=== PATIENT | female | born 1935 | race Caucasian/White ===

== ENCOUNTER 2017-03-14 12:20 | Inpatient (IN) | payer MEDICARE, OTHER ==
[~2017-03-14] VITALS: Ht 167.6 cm; Wt 80.7 kg
[2017-03-14 12:59] VITALS: BP 141/68
[2017-03-14] MEDS ORDERED: VITAMIN B-121000 MCG PO (13:18)
[2017-03-14] MEDS ORDERED: DITROPAN PO (13:19)
[2017-03-14] MEDS ORDERED: VITAMIN D22000 UNIT PO (13:19)
[2017-03-14] MEDS ORDERED: DOCUSATE SOD100 M2 PO (13:19)
[2017-03-14] MEDS ORDERED: LOPRESSOR 550 MG/TAB PO (13:20)
[2017-03-14] MEDS ORDERED: CRESTOR5 MG PO (13:20)
[2017-03-14] MEDS ORDERED: LEVOTHYROXIN100 MCG PO (13:20)
[2017-03-14] MEDS ORDERED: PEPCID20 MG PO (13:20)
[2017-03-14] MEDS ORDERED: LISINOPRIL2.5 MG PO (13:21)
[2017-03-14] MEDS ORDERED: BREO ELLIPTA 101 INH IN (13:21)
[2017-03-14] MEDS ORDERED: WARFARIN2.5 MG PO (13:21)
[2017-03-14] MEDS ORDERED: FLONASE AL50 MCG/ACT (13:22)
[2017-03-14] MEDS ORDERED: FLONASE AL50 MCG/AC1 (13:22)
[2017-03-14] MEDS ORDERED: ALLERGY RELF10 M3 PO (13:22)
[2017-03-14] MEDS ORDERED: LISINOPRIL5 MG PO (13:25)
[2017-03-14 13:35] LABS: HEMATOCRIT 37.5 % (37.0-47.0); HEMOGLOBIN 12.4 g/dl (12.0-16.0); IMMATURE GRANULOCYTES 0.4 % (0.0-1.0); MEAN CELL VOLUME 97.4 fL CALC (80.0-100.0); MEAN CORPUSCULAR HGB 32.2 pG CALC (26.0-32.0); MEAN CORPUSCULAR HGB CONC 33.1 g/L CALC (32.0-36.0); NEUT# 5.49 thou/uL (2.00-7.15); RED BLOOD COUNT 3.85 mill/uL (4.20-5.60); RED CELL DISTRI WIDTH 12.1 % (11.5-15.5)
[2017-03-14 13:41] LABS: ALBUMIN 4.3 g/dL (3.2-5.0); BILIRUBIN, TOTAL 0.6 mg/dL (0.0-1.4); CALCIUM 9.5 mg/dL (8.4-10.2); CREATININE 1.3 mg/dL (0.5-1.0); POTASSIUM 4.4 mmol/l (3.5-5.1); TOTAL PROTEIN 7.5 g/dL (6.3-8.2)
[2017-03-14 13:43] LABS: INTERNATIONAL NORMALIZED RATIO 1.6 RATIO (0.7-1.3); PROTHROMBIN TIME 18.2 SECONDS (9.0-12.5)
[2017-03-14 16:10] VITALS: BP 106/46
[2017-03-14 16:18] LABS: URINE BILIRUBIN - DIPSTICK NEGATIVE (NEGATIVE); URINE BLOOD DIPSTICK NEGATIVE (NEGATIVE); URINE CLARITY CLEAR; URINE COLOR YELLOW; URINE GLUCOSE - DIPSTICK NEGATIVE (NEGATIVE); URINE KETONE NEGATIVE (NEGATIVE); URINE LEUK ESTERASE NEGATIVE (NEGATIVE); URINE NITRITE - DIPSTICK NEGATIVE (Negative); URINE PH 5.5 (4.5-8.0); URINE PROTEIN - DIPSTICK NEGATIVE (NEG-TRACE); URINE SPECIFIC GRAVITY 1.015; URINE UROBILINOGEN - DIPSTICK 0.2 E.U./dL (0.2)
[2017-03-14 19:30] VITALS: BP 128/69
[2017-03-15] VITALS (7 sets, daily range): BP systolic 109–140; BP diastolic 57–68
[2017-03-15 06:10] LABS: HEMOGLOBIN 12.6 g/dl (12.0-16.0); IMMATURE GRANULOCYTES 0.6 % (0.0-1.0); MEAN CELL VOLUME 96.7 fL CALC (80.0-100.0); MEAN CORPUSCULAR HGB 32.1 pG CALC (26.0-32.0); MEAN CORPUSCULAR HGB CONC 33.2 g/L CALC (32.0-36.0); NEUT# 5.43 thou/uL (2.00-7.15); RED BLOOD COUNT 3.93 mill/uL (4.20-5.60); RED CELL DISTRI WIDTH 11.8 % (11.5-15.5)
[2017-03-15 06:25] LABS: INTERNATIONAL NORMALIZED RATIO 1.6 RATIO (0.7-1.3); PROTHROMBIN TIME 18.2 SECONDS (9.0-12.5)
[2017-03-15 06:29] LABS: ANION GAP 17 (6-22 (CALC)); BUN 18 mg/dL (8-23); BUN/CREATININE RATIO 18 (12-20 (CALC)); CARBON DIOXIDE 22 mmol/l (22-30); CHLORIDE 108 mmol/l (95-108); GFR 53 ML/MIN (>=60 (CALC)); GFR FOR AFR.AMER. > 60 ML/MIN (>=60 (CALC)); GLUCOSE 152 mg/dL (82-115); MAGNESIUM 1.6 mg/dL (1.6-2.3); POTASSIUM 4.8 mmol/l (3.5-5.1); SODIUM 141 mmol/l (137-146)
[2017-03-15 20:16] LABS: INTERNATIONAL NORMALIZED RATIO 1.8 RATIO (0.7-1.3); PROTHROMBIN TIME 20.4 SECONDS (9.0-12.5)
[2017-03-16 04:15] VITALS: BP 123/73
[2017-03-16 06:29] LABS: HEMATOCRIT 35.7 % (37.0-47.0); IMMATURE GRANULOCYTES 0.9 % (0.0-1.0); MEAN CELL VOLUME 97.3 fL CALC (80.0-100.0); MEAN CORPUSCULAR HGB 32.7 pG CALC (26.0-32.0); MEAN CORPUSCULAR HGB CONC 33.6 g/L CALC (32.0-36.0); NEUT# 14.93 thou/uL (2.00-7.15); RED BLOOD COUNT 3.67 mill/uL (4.20-5.60)
[2017-03-16 06:45] LABS: PROTHROMBIN TIME 23.4 SECONDS (9.0-12.5)
[2017-03-16 06:50] LABS: ANION GAP 15 (6-22 (CALC)); BUN 20 mg/dL (8-23); BUN/CREATININE RATIO 20 (12-20 (CALC)); CALCIUM 8.9 mg/dL (8.4-10.2); CARBON DIOXIDE 22 mmol/l (22-30); CHLORIDE 109 mmol/l (95-108); GFR 53 ML/MIN (>=60 (CALC)); GFR FOR AFR.AMER. > 60 ML/MIN (>=60 (CALC)); GLUCOSE 146 mg/dL (82-115); MAGNESIUM 1.8 mg/dL (1.6-2.3); POTASSIUM 4.6 mmol/l (3.5-5.1); SODIUM 142 mmol/l (137-146)
[2017-03-16 08:51] VITALS: BP 103/44
[2017-03-16 09:45] VITALS: BP 107/53
[2017-03-16] MEDS ORDERED: HYDROCO/APAP1 TA9 PO (10:01)
[2017-03-16] MEDS ORDERED: LEVAQUIN750 MG PO (10:01)
[2017-03-16] MEDS ORDERED: PREDNISONE10 MG PO (10:03)
== END 2017-03-16 10:53 | disposition home or self-care (01) | DRG 190 ==
LOC: MS2 12:20
PROVIDERS: Nurse Practitioner Family; ADMIT Internal Medicine; ATTEND Internal Medicine
DX: J44.0 Chronic obstructive pulmonary disease with (acute) lower respiratory infection (principal); J18.9 Pneumonia, unspecified organism; N17.9 Acute kidney failure, unspecified; I48.91 Unspecified atrial fibrillation; E86.0 Dehydration; J44.1 Chronic obstructive pulmonary disease with (acute) exacerbation; M54.5 Low back pain; E78.5 Hyperlipidemia, unspecified; E03.9 Hypothyroidism, unspecified; Z79.01 Long term (current) use of anticoagulants

== ENCOUNTER 2017-09-30 08:16 | Emergency (ER) | payer MEDICARE, OTHER ==
[~2017-09-30] VITALS: Ht 167.6 cm; Wt 70.0 kg
[~2017-09-30 08:16] MED LIST: ALLERGY RELF10 M3 PO; BREO ELLIPTA 101 INH IN; CRESTOR5 MG PO; DITROPAN PO; DOCUSATE SOD100 M2 PO; FLONASE AL50 MCG/AC1; FLONASE AL50 MCG/ACT IN; HYDROCO/APAP1 TA9 PO; LEVAQUIN750 MG PO; LEVOTHYROXIN100 MCG PO; LISINOPRIL2.5 MG PO; LISINOPRIL5 MG PO; METO25TAB PO; PEPCID20 MG PO; PREDNISONE10 MG PO; VITAMIN B-121000 MCG PO; VITAMIN D22000 UNIT PO; WARFARIN2.5 MG PO
[2017-09-30 09:03] LABS: HEMATOCRIT 38.8 % (37.0-47.0); HEMOGLOBIN 12.8 g/dl (12.0-16.0); IMMATURE GRANULOCYTES 0.4 % (0.0-1.0); MEAN CELL VOLUME 95.3 fL CALC (80.0-100.0); MEAN CORPUSCULAR HGB 31.4 pG CALC (26.0-32.0); NEUT# 4.72 thou/uL (2.00-7.15); RED BLOOD COUNT 4.07 mill/uL (4.20-5.60); RED CELL DISTRI WIDTH 12.2 % (11.5-15.5)
[2017-09-30 09:33] LABS: ALBUMIN 3.8 g/dL (3.2-5.0); ALKALINE PHOSPHATASE 80 u/l (38-126); AMYLASE 47 u/l (30-110); ANION GAP 16 (6-22 (CALC)); BILIRUBIN, TOTAL 0.6 mg/dL (0.0-1.4); BUN 15 mg/dL (8-23); BUN/CREATININE RATIO 13 (12-20 (CALC)); CARBON DIOXIDE 28 mmol/l (22-30); CHLORIDE 103 mmol/l (95-108); CREATININE 1.2 mg/dL (0.5-1.0); GFR 43 ML/MIN (>=60 (CALC)); GFR FOR AFR.AMER. 52 ML/MIN (>=60 (CALC)); LIPASE 44 u/l (23-300); SGOT/AST 16 u/l (9-36); SGPT/ALT 22 u/l (11-66); SODIUM 143 mmol/l (137-146); TOTAL PROTEIN 6.8 g/dL (6.3-8.2)
[2017-09-30 09:36] LABS: INTERNATIONAL NORMALIZED RATIO 1.6 RATIO (0.7-1.3); PROTHROMBIN TIME 18.3 SECONDS (9.0-12.5)
[2017-09-30 09:42] LABS: MYOGLOBIN 35 ng/mL (0 - 62)
[2017-09-30] MEDS ORDERED: TORADOL PO (10:00)
[2017-09-30 10:05] VITALS: BP 129/53
== END 2017-09-30 10:05 | disposition home or self-care (01) ==
LOC: ED 08:16
PROVIDERS: Family Medicine
DX: R07.89 Other chest pain (principal); R10.13 Epigastric pain; I10 Essential (primary) hypertension; R05 Cough; E78.5 Hyperlipidemia, unspecified

== ENCOUNTER 2017-10-05 10:33 | Observation (INO) | payer MEDICARE, OTHER ==
[~2017-10-05] VITALS: Ht 167.6 cm; Wt 81.8 kg
[~2017-10-05 10:33] MED LIST changes: +TORADOL PO
[2017-10-05 11:06] LABS: HEMATOCRIT 39.4 % (37.0-47.0); HEMOGLOBIN 13.1 g/dl (12.0-16.0); IMMATURE GRANULOCYTES 0.3 % (0.0-1.0); MEAN CELL VOLUME 95.2 fL CALC (80.0-100.0); MEAN CORPUSCULAR HGB 31.6 pG CALC (26.0-32.0); MEAN CORPUSCULAR HGB CONC 33.2 g/L CALC (32.0-36.0); NEUT# 6.14 thou/uL (2.00-7.15); RED BLOOD COUNT 4.14 mill/uL (4.20-5.60); RED CELL DISTRI WIDTH 11.9 % (11.5-15.5)
[2017-10-05 11:25] LABS: ANION GAP 16 (6-22 (CALC)); BUN 16 mg/dL (8-23); BUN/CREATININE RATIO 13 (12-20 (CALC)); CARBON DIOXIDE 26 mmol/l (22-30); CHLORIDE 101 mmol/l (95-108); CREATININE 1.2 mg/dL (0.5-1.0); GFR 43 ML/MIN (>=60 (CALC)); GFR FOR AFR.AMER. 52 ML/MIN (>=60 (CALC)); POTASSIUM 4.2 mmol/l (3.5-5.1); SODIUM 138 mmol/l (137-146)
[2017-10-05] MEDS ORDERED: ACETAMINOPHEN500 MG PO (13:30)
[2017-10-05] MEDS ORDERED: VITAMIN D32000 UNI2 PO (13:32)
[2017-10-05] MEDS ORDERED: DITROPAN PO (13:34)
[2017-10-05] MEDS ORDERED: SINGULAIR10 MG PO (13:35)
[2017-10-05] MEDS ORDERED: WARFARIN2.5 MG PO (13:39)
[2017-10-05 14:14] LABS: INTERNATIONAL NORMALIZED RATIO 1.6 RATIO (0.7-1.3); PROTHROMBIN TIME 18.4 SECONDS (9.0-12.5)
[2017-10-05 14:15] VITALS: BP 145/63
[2017-10-05] MEDS ORDERED: TYLENOL PM PO (15:34)
[2017-10-05] MEDS ORDERED: TORADOL PO (15:41)
[2017-10-05 16:16] VITALS: BP 164/69
[2017-10-05 19:00] VITALS: BP 145/56
[2017-10-06] VITALS: BP 144/47
[2017-10-06 04:00] VITALS: BP 134/61
[2017-10-06 06:49] LABS: INTERNATIONAL NORMALIZED RATIO 1.7 RATIO (0.7-1.3); PROTHROMBIN TIME 18.9 SECONDS (9.0-12.5)
[2017-10-06 07:11] LABS: CHOLESTEROL HDL RATIO 2.6 (<4.4 (CALC))
[2017-10-06 08:15] VITALS: BP 143/49
[2017-10-06 11:11] VITALS: BP 117/57
[2017-10-06] MEDS ORDERED: TRAMADOL HCL50 MG PO (11:53)
[2017-10-06] MEDS ORDERED: VOLTAREN1%GEL TOP (11:53)
== END 2017-10-06 14:53 ==
LOC: ED 10:33 → ED-I 11:42 → ED 12:43 → MS2 12:44
PROVIDERS: Family Medicine; Nurse Practitioner Family; ADMIT Internal Medicine; ATTEND Internal Medicine
DX: T81.89XA Other complications of procedures, not elsewhere classified, initial encounter (principal); G89.28 Other chronic postprocedural pain; I12.9 Hypertensive chronic kidney disease with stage 1 through stage 4 chronic kidney disease, or unspecified chronic kidney disease; N18.9 Chronic kidney disease, unspecified; J44.9 Chronic obstructive pulmonary disease, unspecified; E03.9 Hypothyroidism, unspecified; E78.5 Hyperlipidemia, unspecified; N39.3 Stress incontinence (female) (male); Y83.8 Other surgical procedures as the cause of abnormal reaction of the patient, or of later complication, without mention of misadventure at the time of the procedure; Z95.2 Presence of prosthetic heart valve; Z79.01 Long term (current) use of anticoagulants; R07.9 Chest pain, unspecified

== ENCOUNTER 2017-11-22 07:24 | Emergency (ER) | payer MEDICARE, OTHER ==
[~2017-11-22] VITALS: Ht 167.6 cm; Wt 80.0 kg
[~2017-11-22 07:24] MED LIST changes: +ACETAMINOPHEN500 MG PO; +SINGULAIR10 MG PO; +TRAMADOL HCL50 MG PO; +TYLENOL PM PO; +VITAMIN D32000 UNI2 PO; +VOLTAREN1%GEL TOP
[2017-11-22] MEDS ORDERED: TYLENOL # 31 TA1 PO (07:34)
[2017-11-22] MEDS ORDERED: BREO ELLIPTA 101 INH (07:36)
[2017-11-22] MEDS ORDERED: HYDROCO/APAP1 TA9 PO (07:42)
[2017-11-22] MEDS ORDERED: BACLOFEN10 MG PO (07:42)
[2017-11-22 08:04] LABS: HEMATOCRIT 43.2 % (37.0-47.0); HEMOGLOBIN 14.1 g/dl (12.0-16.0); IMMATURE GRANULOCYTES 0.2 % (0.0-1.0); MEAN CELL VOLUME 95.6 fL CALC (80.0-100.0); MEAN CORPUSCULAR HGB 31.2 pG CALC (26.0-32.0); MEAN CORPUSCULAR HGB CONC 32.6 g/L CALC (32.0-36.0); NEUT# 9.5 thou/uL (2.00-7.15); RED BLOOD COUNT 4.52 mill/uL (4.20-5.60); RED CELL DISTRI WIDTH 11.7 % (11.5-15.5)
[2017-11-22 08:15] LABS: ALBUMIN 4.5 g/dL (3.2-5.0); BILIRUBIN, TOTAL 0.7 mg/dL (0.0-1.4); CREATININE 1.2 mg/dL (0.5-1.0); POTASSIUM 4.2 mmol/l (3.5-5.1); TOTAL PROTEIN 8.3 g/dL (6.3-8.2)
[2017-11-22 09:16] VITALS: BP 162/75
== END 2017-11-22 09:30 | disposition home or self-care (01) ==
LOC: ED 07:24
PROVIDERS: Emergency Medicine
DX: Z04.8 Encounter for examination and observation for other specified reasons (principal); W18.39XA Other fall on same level, initial encounter; Y93.89 Activity, other specified; Y92.129 Unspecified place in nursing home as the place of occurrence of the external cause; R53.1 Weakness; I10 Essential (primary) hypertension; R51 Headache; R94.31 Abnormal electrocardiogram [ECG] [EKG]

== ENCOUNTER 2018-02-28 10:10 | Inpatient (IN) | payer MEDICARE, OTHER ==
[~2018-02-28] VITALS: Ht 167.6 cm; Wt 77.3 kg
[~2018-02-28 10:10] MED LIST changes: +BACLOFEN10 MG PO; +BREO ELLIPTA 101 INH; +TYLENOL # 31 TA1 PO
[2018-02-28 11:19] LABS: HEMATOCRIT 43.5 % (37.0-47.0); HEMOGLOBIN 14.6 g/dl (12.0-16.0); IMMATURE GRANULOCYTES 0.9 % (0.0-5.0); MEAN CORPUSCULAR HGB 31.9 pG CALC (26.0-32.0); MEAN CORPUSCULAR HGB CONC 33.6 g/L CALC (32.0-36.0); NEUT# 9.45 thou/uL (2.00-7.15); RED BLOOD COUNT 4.58 mill/uL (4.20-5.60); RED CELL DISTRI WIDTH 12.8 % (11.5-15.5)
[2018-02-28 11:26] LABS: ALBUMIN 4.3 g/dL (3.2-5.0); BILIRUBIN, TOTAL 0.8 mg/dL (0.0-1.4); CREATININE 1.2 mg/dL (0.5-1.0); POTASSIUM 4.9 mmol/l (3.5-5.1); TOTAL PROTEIN 7.6 g/dL (6.3-8.2)
[2018-02-28] MEDS ORDERED: SPIRIVA RE2.5 MCG/AC (11:31)
[2018-02-28] MEDS ORDERED: WARFARIN2.5 MG PO (11:32)
[2018-02-28] MEDS ORDERED: MONTELUKAST SOD10 MG PO (11:33)
[2018-02-28] MEDS ORDERED: PREDNISOLON2 XX (11:36)
[2018-02-28] MEDS ORDERED: ZITHROMAX Z-PA250 MG (11:37)
[2018-02-28 12:09] LABS: URINE BILIRUBIN - DIPSTICK NEGATIVE (NEGATIVE); URINE BLOOD DIPSTICK NEGATIVE (NEGATIVE); URINE COLOR YELLOW; URINE GLUCOSE - DIPSTICK NEGATIVE (NEGATIVE); URINE KETONE NEGATIVE (NEGATIVE); URINE LEUK ESTERASE TRACE (NEGATIVE); URINE NITRITE - DIPSTICK NEGATIVE (Negative); URINE PH 6.5 (4.5-8.0); URINE PROTEIN - DIPSTICK NEGATIVE (NEG-TRACE); URINE SPECIFIC GRAVITY <=1.005; URINE UROBILINOGEN - DIPSTICK 0.2 E.U./dL (0.2)
[2018-02-28 12:10] LABS: URINE CLARITY CLEAR
[2018-02-28 16:14] VITALS: BP 163/63
[2018-02-28 20:00] VITALS: BP 126/62
[2018-03-01 04:00] VITALS: BP 107/72
[2018-03-01 05:16] LABS: HEMATOCRIT 39.1 % (37.0-47.0); HEMOGLOBIN 12.9 g/dl (12.0-16.0); IMMATURE GRANULOCYTES 0.8 % (0.0-5.0); MEAN CELL VOLUME 95.4 fL CALC (80.0-100.0); MEAN CORPUSCULAR HGB 31.5 pG CALC (26.0-32.0); NEUT# 5.82 thou/uL (2.00-7.15); RED BLOOD COUNT 4.1 mill/uL (4.20-5.60); RED CELL DISTRI WIDTH 12.9 % (11.5-15.5)
[2018-03-01 05:36] LABS: ALKALINE PHOSPHATASE 76 u/l (38-126); ANION GAP 14 (6-22 (CALC)); BILIRUBIN, TOTAL 0.4 mg/dL (0.0-1.4); BUN 26 mg/dL (8-23); BUN/CREATININE RATIO 25 (12-20 (CALC)); CARBON DIOXIDE 23 mmol/l (22-30); CHLORIDE 107 mmol/l (95-108); GFR 53 ML/MIN (>=60 (CALC)); GFR FOR AFR.AMER. > 60 ML/MIN (>=60 (CALC)); MAGNESIUM 1.9 mg/dL (1.6-2.3); POTASSIUM 4.2 mmol/l (3.5-5.1); SGOT/AST 29 u/l (9-36); SGPT/ALT 44 u/l (11-66); SODIUM 140 mmol/l (137-146)
[2018-03-01 05:45] LABS: ALBUMIN 3.1 g/dL (3.2-5.0); TOTAL PROTEIN 5.8 g/dL (6.3-8.2)
[2018-03-01 07:45] VITALS: BP 148/68
[2018-03-01 09:35] VITALS: BP 148/68
[2018-03-01] MEDS ORDERED: TRAMADOL HCL50 MG PO (14:04)
== END 2018-03-01 15:12 | DRG 206 ==
LOC: ED 10:10 → ED-I 14:22 → ED 14:43 → MS2 14:44
PROVIDERS: Emergency Medicine; ADMIT Internal Medicine Nephrology; ATTEND Internal Medicine Nephrology
DX: M94.0 Chondrocostal junction syndrome [Tietze] (principal); E87.2 Acidosis; I12.9 Hypertensive chronic kidney disease with stage 1 through stage 4 chronic kidney disease, or unspecified chronic kidney disease; N18.9 Chronic kidney disease, unspecified; I48.91 Unspecified atrial fibrillation; I25.10 Atherosclerotic heart disease of native coronary artery without angina pectoris; M51.9 Unspecified thoracic, thoracolumbar and lumbosacral intervertebral disc disorder; E03.9 Hypothyroidism, unspecified; J44.9 Chronic obstructive pulmonary disease, unspecified; E78.5 Hyperlipidemia, unspecified; Z79.52 Long term (current) use of systemic steroids; Z79.01 Long term (current) use of anticoagulants; Z87.440 Personal history of urinary (tract) infections; Z95.2 Presence of prosthetic heart valve
CPT/HCPCS: J1650; Q9967

== ENCOUNTER 2018-05-05 14:03 | Emergency (ER) | payer MEDICARE, OTHER ==
[~2018-05-05] VITALS: Ht 167.6 cm; Wt 72.3 kg
[~2018-05-05 14:03] MED LIST changes: -METO25TAB PO; +METOPROL TAR25 M1 PO; +MONTELUKAST SOD10 MG PO; +PREDNISOLON2 XX; +SPIRIVA RE2.5 MCG/AC; +ZITHROMAX Z-PA250 MG
[2018-05-05 15:20] LABS: HEMATOCRIT 42.1 % (37.0-47.0); HEMOGLOBIN 13.8 g/dl (12.0-16.0); IMMATURE GRANULOCYTES 0.6 % (0.0-5.0); MEAN CELL VOLUME 97.9 fL CALC (80.0-100.0); MEAN CORPUSCULAR HGB 32.1 pG CALC (26.0-32.0); MEAN CORPUSCULAR HGB CONC 32.8 g/L CALC (32.0-36.0); NEUT# 9.59 thou/uL (2.00-7.15); RED BLOOD COUNT 4.3 mill/uL (4.20-5.60); RED CELL DISTRI WIDTH 12.2 % (11.5-15.5)
[2018-05-05 15:27] LABS: ALKALINE PHOSPHATASE 87 u/l (38-126); BILIRUBIN, TOTAL 0.5 mg/dL (0.0-1.4); BUN 19 mg/dL (8-23); BUN/CREATININE RATIO 20 (12-20 (CALC)); CARBON DIOXIDE 25 mmol/l (22-30); CHLORIDE 101 mmol/l (95-108); GFR 53 ML/MIN (>=60 (CALC)); GFR FOR AFR.AMER. > 60 ML/MIN (>=60 (CALC)); LIPASE 13 u/l (23-300); SGOT/AST 36 u/l (9-36); SODIUM 136 mmol/l (137-146)
[2018-05-05 15:29] LABS: ALBUMIN 4.1 g/dL (3.2-5.0); ANION GAP 15 (6-22 (CALC)); POTASSIUM 5.1 mmol/l (3.5-5.1); TOTAL PROTEIN 7.1 g/dL (6.3-8.2)
[2018-05-05 16:31] LABS: URINE BILIRUBIN - DIPSTICK NEGATIVE (NEGATIVE); URINE BLOOD DIPSTICK NEGATIVE (NEGATIVE); URINE COLOR YELLOW; URINE GLUCOSE - DIPSTICK NEGATIVE (NEGATIVE); URINE KETONE NEGATIVE (NEGATIVE); URINE LEUK ESTERASE NEGATIVE (NEGATIVE); URINE NITRITE - DIPSTICK NEGATIVE (Negative); URINE PROTEIN - DIPSTICK NEGATIVE (NEG-TRACE); URINE UROBILINOGEN - DIPSTICK 0.2 E.U./dL (0.2)
[2018-05-05 16:36] LABS: URINE CLARITY CLEAR
[2018-05-05] MEDS ORDERED: TORADOL PO (18:55)
[2018-05-05 19:11] VITALS: BP 141/76
== END 2018-05-05 19:26 | disposition home or self-care (01) ==
LOC: ED 14:03
PROVIDERS: Emergency Medicine
DX: R10.13 Epigastric pain (principal); K59.00 Constipation, unspecified; I25.2 Old myocardial infarction; I10 Essential (primary) hypertension; M54.9 Dorsalgia, unspecified

== ENCOUNTER 2018-05-09 09:26 | Inpatient (IN) | payer MEDICARE, OTHER ==
[~2018-05-09] VITALS: Ht 167.6 cm; Wt 73.3 kg
[2018-05-09 09:45] VITALS: BP 118/64
--- NOTE | 2018-05-09 09:45 | NUR ---
PT TRANSPORTED TO [facility] VIA WHEELCHAIR ACCOMPANIED BY VOLUNTEER AND FAMILY @[id number]. PT AMBULATED FROM WHEELCHAIR TO BED W/ ASSISTANCE OF REGIONAL ENVIRONMENTAL MANAGER. VS DONE. ASSESSMENT COMPLETED AT THIS TIME. PT A/O X3. SPEECH IS CLEAR. POST CATARACT SURGERY. RESP EVEN AND UNLABORED. LUNG SOUNDS CLEAR. ABDOMEN ROUND,SOFT. BOWEL SOUNDS ACTIVE X3. STRONG RADIAL AND PEDAL PULSES. TRACE OF EDEMA TO BLE. ENCOURAGED ELVEATION ON PILLOW. #20 RW, NEW IV START BY REGIONAL ENVIRONMENTAL MANAGER. FLUSHED AND PATENT. SITE APPEARS HEALTHY. PT C/O THROBBING BACK PAIN 4 OUT OF 10 ON PAIN SCALE WHEN MOVING THAT RADIATES AROUND STOMACH. PT DENIES ANY PAIN MEDICATION AT THIS TIME. INSTRUCTED ON PAIN SCALE/MONITORING. PT STATES UNDERSTANDING. POC DISCUSSED. SAFETY PRECAUTIONS IN PLACE. CALL LIGHT IN REACH. WILL CONTINUE TO MONITOR
[2018-05-09 09:53] VITALS: BP 118/64
--- NOTE | 2018-05-09 10:26 | NUR ---
MS. RODAS FROM PHYSICAL THERAPY WAS HERE IN THE UNIT, AND I INFORMED ABOUT THE PHYSICAL AND OCCUPATIONAL THERAPY ORDER.
[2018-05-09 10:32] LABS: HEMATOCRIT 38.4 % (37.0-47.0); HEMOGLOBIN 12.6 g/dl (12.0-16.0); IMMATURE GRANULOCYTES 0.5 % (0.0-5.0); MEAN CELL VOLUME 97.2 fL CALC (80.0-100.0); MEAN CORPUSCULAR HGB 31.9 pG CALC (26.0-32.0); MEAN CORPUSCULAR HGB CONC 32.8 g/L CALC (32.0-36.0); NEUT# 8.16 thou/uL (2.00-7.15); RED BLOOD COUNT 3.95 mill/uL (4.20-5.60); RED CELL DISTRI WIDTH 11.9 % (11.5-15.5)
[2018-05-09 10:58] LABS: CREATININE 1.2 mg/dL (0.5-1.0)
[2018-05-09 11:28] VITALS: BP 132/56
[2018-05-09 11:32] LABS: URINE BILIRUBIN - DIPSTICK NEGATIVE (NEGATIVE); URINE BLOOD DIPSTICK NEGATIVE (NEGATIVE); URINE COLOR YELLOW; URINE GLUCOSE - DIPSTICK NEGATIVE (NEGATIVE); URINE KETONE NEGATIVE (NEGATIVE); URINE NITRITE - DIPSTICK NEGATIVE (Negative); URINE PH 6.5 (4.5-8.0); URINE PROTEIN - DIPSTICK NEGATIVE (NEG-TRACE); URINE SPECIFIC GRAVITY <=1.005; URINE UROBILINOGEN - DIPSTICK 0.2 E.U./dL (0.2)
[2018-05-09 11:34] LABS: URINE CLARITY CLEAR
[2018-05-09 11:35] LABS: URINE LEUK ESTERASE TRACE (NEGATIVE)
--- NOTE | 2018-05-09 12:20 | NUR ---
PT SITTING UP IN BED EATING LUNCH. RESP EVEN AND UNLABORED. PT DENIES ANY PAIN AT THIS TIME. CALL LIGHT IN REACH. WILL CONTINUE TO MONITOR
--- NOTE | 2018-05-09 13:48 | NUR ---
PT HAD ONLY CAME BACK FROM DOWNSTAIRS FOR DIAGNOSTIC EXAMS. STATED SHE WAS SO EXHAUSTED FROM TRANSFERS AND THAT HER STOMACH (POINTING AT HER EPIGASTRIC) WAS SO MUCH IN PAIN PS 10/10 WORSENED BY SLIGHT MOVEMENT. REQUESTED PT ASSESSMENT TO BE DONE TOMORROW.
[2018-05-09] MEDS ORDERED: MIRALAX3350 NF PO (13:49)
[2018-05-09] MEDS ORDERED: ACETAMINOPHEN500 MG PO (14:25)
--- NOTE | 2018-05-09 14:48 | NUR ---
O.TRo ATTEMPTED TO EVAL PATIENT AT 2:45 P.M., HOWEVER, PATIENT DECLINED O.T. EVAL DUE TO ABDOMINAL PAIN 01/27. Tessa DISCUSSED WITH Haroon
--- NOTE | 2018-05-09 14:49 | NUR ---
PT C/O THROBBING BACK PAIN RADIATING AROUND STOMACH. MEDICATED W/ ONE 10/ PERCOCET PO. REPOSITIONED IN BED FOR COMFORT. ASSISTED PT TO RESTROOM. FAMILY AT BEDSIDE. CALL LIGHT IN REACH. WILL CONTINUE TO MONITOR
--- NOTE | 2018-05-09 15:25 | NUR ---
PT STATES BACK PAIN HAS DECREASED TO A 5 OUT OF 10 ON PAIN SCALE. PT DENIES ANY FURTHER NEEDS. TELE IN PLACE. CALL LIGHT IN REACH. FAMILY AT BEDSIDE. WILL CONTINUE TO MONITOR
[2018-05-09 15:38] VITALS: BP 130/53
--- NOTE | 2018-05-09 15:40 | NUR ---
Performed medication reconcillation with patient. She is in an HALF-WAY and was unsure which medications she takes at which time of the day. Called [facility] and had medication record faxed over and recorded the most recent dosage times in her profile and removed medications she was no longer taking. Patient understood uses of all medications and had no further questions.
--- NOTE | 2018-05-09 17:15 | NUR ---
DR. QUINTANILLA IN TO SEE PT. PLAN OF CARE UPDATED.
[2018-05-09 18:57] VITALS: BP 146/61
--- NOTE | 2018-05-09 19:30 | NUR ---
PATIENT RESTING IN BED AT THIS TIME-AWAKE ALERT AND ORIENTEDX3. TELE MONITOR IN PLACE. SALINE LOCK TO RIGHT WRIST INTACT AND APPEARS HEALTHY AT THIS TIME. SAFETY PRECAUTIONS REINFORCED.CALL LIGHT IN REACH. WILL CONT TO MONITOR.
--- NOTE | 2018-05-09 20:35 | NUR ---
PATIENT RESTING IN BED-WATCHING TV. AWAKE ALERT WITH C/O MODERATE BACK PAIN. MEDICATED WITH PERCOCET ORDERED. IVF NS HUNG VIA RIGHT WRIST IV SITE-SITE IS HEALTHY AT THIS TIME. COUMADIN 2.5MG PO GIVEN ORDERED. SAFETY PRECAUTIONS REINFORCED. CALL LIGHT IN REACH. WILL CONT TO MONITOR.
[2018-05-10 00:07] VITALS: BP 149/61
--- NOTE | 2018-05-10 00:43 | NUR ---
PATIENT APPEARS SLEEPING AT THIS TIME WITH HOB ELEVATED AND EYES CLOSED. RESP ARE EVEN AND UNLABORED. TELE MONITOR IN PLACE. CALL LIGHT IN REACH. WILL CONT TO MONITOR.
--- NOTE | 2018-05-10 02:10 | NUR ---
PATIENT RESTING QUIETLY AT THIS TIME WITH NO COMPLAINTS. IVF NS PATENT AND INFUSING AT 80CC/HR ORDERED VIA RIGHT WRIST SITE. TELE MONITOR IN PLACE. CALL LIGHT IN REACH. WILL CONT TO MONITOR.
--- NOTE | 2018-05-10 04:07 | NUR ---
RESPONDED TO BED ALARM AND PATIENT IS ATTEMPTING TO GET OOB-SPAWLED ACROSS THE BED. PATIENT CONT TO HAVE SPASTIC MOVEMENT OF HER ARMS AND LEGS. STATES THAT SHE HAS TO URINATE. MAX ASSIST TO TRANSFER PATIENT TO BSC-PATIENT INCONT OF MODERATE AMT OF URINE DURING TRANSFER AND THEN LEGS BUCKLED-PLACED ON BSC TO VOID. PATIENT CONTINUES TO HAVE SPASTIC MOVEMENTS WHILE ON THE BSC FLAILING HER ARMS AROUND AND MUMBLING TO HERSELF. WHEN ASKED SPECIFIC QUESTIONS PATIENT DOES ANSWER CORRECTLY-KNOWS WHERE SHE IS AND BIRTHDATE. KNOWS HER NAME BUT THEN GOES RIGHT BACK TO INAPPROPRIATE BEHAVIOR. MAX ASSIST TO GET PATIENT BACK INTO BED. REPOSITIONED. SITTER AT BEDSIDE AT THIS TIME FOR PATIENT SAFETY. WILL CONT TO MONITOR.
[2018-05-10 04:12] VITALS: BP 139/70
--- NOTE | 2018-05-10 04:35 | NUR ---
RESTING IN BED AT THIS TIME-APPEARS SLEEPING WITH EYES CLOSED. TELE MONITOR IN PLACE. IVF NS PATENT AND INFUSING AT 80CC/HR. SITE REMAINS HEALTHY AT THIS TIME. CALL LIGHT IN REACH. WILL CONT TO MONITOR.
[2018-05-10 05:08] LABS: HEMATOCRIT 38.6 % (37.0-47.0); HEMOGLOBIN 12.6 g/dl (12.0-16.0); IMMATURE GRANULOCYTES 0.5 % (0.0-5.0); MEAN CORPUSCULAR HGB CONC 32.6 g/L CALC (32.0-36.0); NEUT# 5.64 thou/uL (2.00-7.15); RED BLOOD COUNT 3.94 mill/uL (4.20-5.60)
[2018-05-10 05:21] LABS: ALKALINE PHOSPHATASE 72 u/l (38-126); ANION GAP 10 (6-22 (CALC)); BILIRUBIN, TOTAL 0.6 mg/dL (0.0-1.4); BUN 15 mg/dL (8-23); BUN/CREATININE RATIO 15 (12-20 (CALC)); CARBON DIOXIDE 27 mmol/l (22-30); CHLORIDE 107 mmol/l (95-108); GFR 53 ML/MIN (>=60 (CALC)); GFR FOR AFR.AMER. > 60 ML/MIN (>=60 (CALC)); POTASSIUM 4.5 mmol/l (3.5-5.1); SGOT/AST 17 u/l (9-36); SODIUM 139 mmol/l (137-146)
[2018-05-10 05:22] LABS: ALBUMIN 2.9 g/dL (3.2-5.0); TOTAL PROTEIN 5.4 g/dL (6.3-8.2)
--- NOTE | 2018-05-10 06:23 | NUR ---
PATIENT RESTING INBED WITH SUDDEN ONSET SHARP ABD/EPIGASTIC PAIN-10/10 ON PAIN SCALE. MEDICATED WITH MORPHINE 2MG IVP ORDERED FOR PAIN. PATIENT STATES THAT IT JUST COMES ON SUDDENLY LIKE THAT. IV SITE TO RIGHT WRIST REMAINS HEALTHY AT THIS TIME. TELE MONITOR IN PLACE. SAFETY PRECAUTIONS REINFORCED.CALL LIGHT IN REACH. WILL CONT TO MONITOR.
[2018-05-10 06:29] LABS: PROTHROMBIN TIME 23.2 SECONDS (9.0-12.5)
[2018-05-10 06:35] LABS: INTERNATIONAL NORMALIZED RATIO 2.2 RATIO (0.7-1.3)
--- NOTE | 2018-05-10 07:17 | NUR ---
REPORT RECEIVED FROM JESUS ORDOÑEZ. PT LAYING IN BED AWAKE, ALERT, RESP EVEN AND UNLABORED; BED IN LOW LOCKED POSITION, CALL MONGE IN REACH.
--- NOTE | 2018-05-10 08:11 | NUR ---
I notified Dr. Hernandez office about the consultation. I spoke with Vivian and she confirmed the consultation @0811 am.
[2018-05-10 08:19] VITALS: BP 162/72
--- NOTE | 2018-05-10 09:15 | NUR ---
ASSESSMENT COMPLETED; PT A/O X 4; RESP EVEN AND UNLABORED; PT AMBULATED TO BATHROOM WITH STEADY GAIT AND A WALKER; LUNGS CLEAR; ABD SOFT, ROUND; BM TODAY; ACTIVE BOWEL SOUND; TRACE EDEMA BLE; IVF NS @ 80CC/HR; SITE APPEARS HEALTHY; RADIAL AND PEDAL PULSES STRONG; TELE IN PLACE; CALL LIGHT IN REACH. WILL CONTINUE TO MONITOR.
--- NOTE | 2018-05-10 09:50 | NUR ---
PT SITTING UP IN RECLINER, SON PRESENT IN ROOM; PT STATED PAIN 8/10 MEDICATED WITH MORPHINE; NO S/S OF DISTRESS NOTED
[2018-05-10] MEDS ORDERED: WARFARIN5 MG PO (10:16)
--- NOTE | 2018-05-10 10:22 | NUR ---
ASSISTED PT BACK TO BED, CALL LIGHT IN REACH.
[2018-05-10 11:44] VITALS: BP 157/57
--- NOTE | 2018-05-10 12:01 | NUR ---
PT SITTING UP IN BED EATING LUNCH; PT STATED PAIN IS BETTER; NO S/S OF DISTRESS NOTED; CALL MONGE IN REACH.
--- NOTE | 2018-05-10 12:39 | NUR ---
DR WILEY AT BEDSIDE TO DISCUSS POC
--- NOTE | 2018-05-10 13:00 | NUR ---
MEDICATED WITH PERCOCET PAIN 01/27
--- NOTE | 2018-05-10 14:06 | NUR ---
Spoke with patient to assure her medication list was accurate. She explained that she just takes what the group home gives her, however she was able to verify her medications. She wanted to assure that no medications were [facility] for [facility]. She also was concerned about when she was leaving because she was told she was and I asked Sally who asked case management. The patient told me she wants to know what is going on with her because she feels as if no one is telling her what is going on.
[2018-05-10 16:00] VITALS: BP 142/64
--- NOTE | 2018-05-10 16:10 | NUR ---
PT SITTING UP IN BED TALKING ON THE PHONE; NO S/S OF DISTRESS NOTED; PT STATED 0/10 PAIN; PT VOICED NO CONCERNS; WILL CONTINUE TO MONITOR.
[2018-05-10 18:39] VITALS: BP 143/58
--- NOTE | 2018-05-10 19:49 | NUR ---
PATIENT RESTINT IN BED AT THIS TIME WITH HOB ELEVATED. AWAKE ALERT AND ORIENTEDX3 WITH NO COMPLAINTS AT THIS TIME. TELE MONITOR IN PLACE. IV SITE TO RIGHT WRIST INTACT WITH IVF NS PATENT AND INFUSING AT 80CC/HR. SITE APPEARS HEALTHY AT THIS TIME. SAFETY PRECAUTIONS REINFORCED. CALL LIGHT IN REACH. WILL CONT TO MONITOR.
--- NOTE | 2018-05-10 20:55 | NUR ---
PATIENT RESTING IN BED-REFUSES SEVERINO HERRMANN AND STATES THAT SHE HAD 2 BM'S TODAY. MEDICATED FOR SLEEP WITH ATIVAN 0.5MG PO AND FOR ABD PAIN WITH PERCOCET. SAFETY PRECAUTIONS REINFORCED. CALL LIGHT IN REACH, WILL CONT TO MONITOR.
--- NOTE | 2018-05-10 23:57 | NUR ---
PATIENT APPEARS SLEEPING AT THIS TIME WITH EYES CLOSED. TELE MONITOR IN PLACE. RESP ARE EVEN AND UNLABORED. CALL LIGHT IN REACH. WILL CONT TO MONITOR.
[2018-05-11 00:01] VITALS: BP 174/61
[2018-05-11 03:45] VITALS: BP 156/73
--- NOTE | 2018-05-11 04:53 | NUR ---
PATIENT ASSISTED UP TO BR TO VOID AND THEN BACK TO THE BED. PATIENT SUDDENLY DEVELOPED SEVERE UPPER ABD/EPIGASTRIC 10/10 ON PAIN SCALE. MEDICATED WITH MORPHINE 2 MG IVP FOR PAIN. TELE MONITOR IN PLACE. IVF PATENT AND INFUSING AT 80CC/HR VIA RIGHT WRIST IV SITE. SAFETY PRECAUTIONS REINFORCED. CALL LIGHT IN REACH. WILL CONT TO MONITOR.
[2018-05-11 05:13] LABS: HEMATOCRIT 39.2 % (37.0-47.0); HEMOGLOBIN 12.8 g/dl (12.0-16.0); IMMATURE GRANULOCYTES 0.4 % (0.0-5.0); MEAN CELL VOLUME 97.3 fL CALC (80.0-100.0); MEAN CORPUSCULAR HGB 31.8 pG CALC (26.0-32.0); MEAN CORPUSCULAR HGB CONC 32.7 g/L CALC (32.0-36.0); NEUT# 7.13 thou/uL (2.00-7.15); RED BLOOD COUNT 4.03 mill/uL (4.20-5.60); RED CELL DISTRI WIDTH 11.9 % (11.5-15.5)
[2018-05-11 05:25] LABS: ALBUMIN 3.1 g/dL (3.2-5.0); ALKALINE PHOSPHATASE 84 u/l (38-126); ANION GAP 9 (6-22 (CALC)); BILIRUBIN, TOTAL 0.8 mg/dL (0.0-1.4); BUN 10 mg/dL (8-23); BUN/CREATININE RATIO 11 (12-20 (CALC)); CARBON DIOXIDE 25 mmol/l (22-30); CHLORIDE 108 mmol/l (95-108); CREATININE 0.9 mg/dL (0.5-1.0); GFR 60 ML/MIN (>=60 (CALC)); GFR FOR AFR.AMER. > 60 ML/MIN (>=60 (CALC)); MAGNESIUM 1.7 mg/dL (1.6-2.3); POTASSIUM 4.4 mmol/l (3.5-5.1); SGOT/AST 17 u/l (9-36); SODIUM 138 mmol/l (137-146); TOTAL PROTEIN 5.6 g/dL (6.3-8.2)
--- NOTE | 2018-05-11 07:18 | NUR ---
REPORT RECEIVED FROM JESUS ORDOÑEZ. PT SUPINE IN BED. DENIES PAIN AT THE MOMENT WHILE LYING STILL. REPORTING OF CONCERNS ENCOURAGED. PAIN MEDICATIONS DISCUSSED. PLAN OF CARE REVIEWED. CALL LIGHT REVIEWED AND IN REACH. FALL PRECAUTIONS REINFORCED. PT STATES UNDERSTANDING.
[2018-05-11 07:45] VITALS: BP 163/64
--- NOTE | 2018-05-11 08:32 | NUR ---
ASSESSMENT COMPLETED AT THIS TIME. PT. AAOX3. REFUSING STOOL SOFTENERS, REPORTS BM X 2 YESTERDAY. LUNG SOUNDS CLEAR. NO OPEN AREAS OF SKIN, BRUISING TO BIALTERAL UPPER ARMS R/T BP CUFFS. FALL PRECAUTIONS REINFORCED. NS@ 80ML/HR INFUSING TO #20 RW W/O DIFFICULTY. NO REDNESS/SWELLING.
[2018-05-11 09:29] LABS: INTERNATIONAL NORMALIZED RATIO 2.2 RATIO (0.7-1.3); PROTHROMBIN TIME 22.9 SECONDS (9.0-12.5)
--- NOTE | 2018-05-11 10:22 | NUR ---
OMI QUINN IN TO SEE PT. AT THIS TIME.
[2018-05-11] MEDS ORDERED: NAPROXEN500 MG PO (12:06)
--- NOTE | 2018-05-11 12:15 | NUR ---
DR. SANDERS IN TO SEE PT AT THIS TIME.
[2018-05-11 13:32] VITALS: BP 160/52
[2018-05-11 15:30] VITALS: BP 120/53
--- NOTE | 2018-05-11 16:51 | NUR ---
PT SITTING IN CHAIR AT BEDSIDE. REPORTS IMPROVEMENT IN BACK PAIN. CALL LIGHT WITHIN REACH.
[2018-05-11 19:00] VITALS: BP 154/55
--- NOTE | 2018-05-11 19:28 | NUR ---
REPORT RECIEVED FROM SINDY LEE. PT RESTING IN BED WITH NO S/S OF DISTRESS NOTED. IV SITE APPEARS HEALTHY, IV FLUIDS INFUSING WITHOUT DIFFICULTY. PT C/O PAIN IN RLQ 4-10 REPOSTIONED AT THIS TIME WILL CONTINUE TO MONITOR. BRUISING NOTED BILATERAL UPPER ARMS. PT ALERT AND ORIENTED. DENIES ANY WANTS OR NEEDS AT THIS TIME. CALL LIGHT WITHIN REACH.
--- NOTE | 2018-05-11 22:59 | NUR ---
PT RESTING IN BED WITH EYES CLOSED. NO S/S OF PAIN OR DISCOMFORT NOTED. RESPIRATIONS EVEN AND UNLABORED. CALL LIGHT WITHIN REACH.
[2018-05-12 00:12] VITALS: BP 161/58
--- NOTE | 2018-05-12 03:24 | NUR ---
PT RESTING IN BED WITH EYES CLOSED. NO S/S OF DISTRESS NOTED. CALL LIGHT WITHIN REACH.
[2018-05-12 04:16] VITALS: BP 127/83
--- NOTE | 2018-05-12 04:40 | NUR ---
PT NOTED TO HAVE TEMP OF 101. PRN APAP ADMINISTERED. AIR TURNED DOWN AND HEAVY BLANKET REMOVED AT THIS TIME. WILL CONTINUE TO MONITOR. PT DENIES ANY PAIN AT THIS TIME.
[2018-05-12 05:09] LABS: HEMATOCRIT 36.7 % (37.0-47.0); HEMOGLOBIN 12.1 g/dl (12.0-16.0); MEAN CELL VOLUME 96.3 fL CALC (80.0-100.0); MEAN CORPUSCULAR HGB 31.8 pG CALC (26.0-32.0); RED BLOOD COUNT 3.81 mill/uL (4.20-5.60); RED CELL DISTRI WIDTH 11.9 % (11.5-15.5)
[2018-05-12 05:17] LABS: ANION GAP 10 (6-22 (CALC)); BUN 9 mg/dL (8-23); BUN/CREATININE RATIO 10 (12-20 (CALC)); CARBON DIOXIDE 22 mmol/l (22-30); CHLORIDE 110 mmol/l (95-108); CREATININE 0.9 mg/dL (0.5-1.0); GFR 60 ML/MIN (>=60 (CALC)); GFR FOR AFR.AMER. > 60 ML/MIN (>=60 (CALC)); MAGNESIUM 1.3 mg/dL (1.6-2.3); POTASSIUM 3.6 mmol/l (3.5-5.1); SODIUM 138 mmol/l (137-146)
[2018-05-12 05:20] LABS: INTERNATIONAL NORMALIZED RATIO 2.5 RATIO (0.7-1.3); PROTHROMBIN TIME 25.5 SECONDS (9.0-12.5)
--- NOTE | 2018-05-12 06:19 | NUR ---
ED REPORTED PT IN AFIB. EKG ORDERED. RT IN ROOM AT THIS TIME.
--- NOTE | 2018-05-12 06:31 | NUR ---
EKG DONE. PHYSICIAN NOTIFIED.
--- NOTE | 2018-05-12 07:44 | NUR ---
SHIFT CHANGE REPORT FROM MARIANA, PT SLEEPING, BREATHING EVEN AND NON-LABORED, NO SIGN DISCOMFORT AT THIS TIME, CALL MONGE IN REACH.
[2018-05-12 09:09] VITALS: BP 98/44
[2018-05-12 11:16] VITALS: BP 120/68
--- NOTE | 2018-05-12 12:15 | NUR ---
05/12/18; Patient seen for gait training and functional activities. Patient alert, will answer questions with appropriate one word answers and tries to be cooperative. States she is pain across her low back-nursing medicated her this a.m. States she is able to walk with the walker, but doesn't want to sit in the chair for awhile as the pain made her nauseous earlier. Gait training done with rolling walker. Mini assist needed and verbal cuing. Endurance is approx 40 feet. Transfer training done supine to and from sit. Patient requires mod assist for sit to supine. With cuing she is able to come to sit indep. She was made comfortable in the bed with her lunch available, and her call light in her hand.
--- NOTE | 2018-05-12 12:20 | NUR ---
SITTING UP IN BED HAVING MEAL AT THIS TIME, ALL NEEDS ADDRESSED, WILL CONTINUE TO MONITOR.
[2018-05-12 15:15] VITALS: BP 106/63
--- NOTE | 2018-05-12 15:31 | NUR ---
WENT OFF UNI TO PROCEDURE AND IS BACK TO UNIT AT THIS TIME AND SETTLED IN BED, SLEEPY, NEEDS ADDRESSED, CALL MONGE IN REACH.
[2018-05-12 19:02] VITALS: BP 114/63
--- NOTE | 2018-05-12 19:20 | NUR ---
PT RESTING IN BED WATCHING TV. DENIES ANY PAIN OR DISCOMFORT. RESPIRATIONS EVEN AND UNLABORED. NO IV ACCESS AT THIS TIME. NURSE TO NURSE REPORT RECIEVED FROM ERIC LEE. PT DOES NOT VERBALIZE ANY WANTS OR NEEDS. DISCUSSED PLAN OF CARE. CALL LIGHT WITHIN REACH.
--- NOTE | 2018-05-12 19:26 | NUR ---
UNABLE TO OBTAIN IV ACCESS AFTER 3 STAFF MEMBERS TRIED, TIKA (ENTRY LEVEL ACCOUNT MANAGER) ASKED TO ASSIST BUT WAS IN EMERGENCY, VELVET FROM ICU ASKED TO ASSIST AND WILL COME LATER. NIGHT NURSES INFORMED PT NEEDS IV MAGNESIUM, DR SANDERS INFORMED OF SITUATION AND GAVE ORDERS FOR ORAL MAG. IF NO IV ACCESS CAN BE OBTAINED.
--- NOTE | 2018-05-12 20:10 | NUR ---
IV ACCESS OBTAINED. MAGNESIUM INFUSING WITHOUT DIFFICULTY. PHYSICIAN NOTIFIED.
[2018-05-13 00:13] VITALS: BP 113/50
--- NOTE | 2018-05-13 00:31 | NUR ---
PT RESTING IN BED WITH EYES CLOSED. EASILY AROUSED TO VERBAL STIMULI. IV SITE APPEARS HEALTHY. IV FLUIDS INFUSING WITHOUT DIFFICULTY. PT DENIES ANY PAIN AT THIS TIME. CALL LIGHT WITHIN REACH.
--- NOTE | 2018-05-13 04:06 | NUR ---
PT RESTING IN BED WITH EYES CLOSED. IV FLUIDS INFUSING WIHTOUT DIFFICULTY. IV SITE APPEARS HEALTHY. CALL LIGHT WITHIN REACH.
[2018-05-13 04:08] VITALS: BP 113/49
[2018-05-13 05:42] LABS: INTERNATIONAL NORMALIZED RATIO 2.5 RATIO (0.7-1.3); PROTHROMBIN TIME 25.9 SECONDS (9.0-12.5)
[2018-05-13 05:44] LABS: ANION GAP 8 (6-22 (CALC)); BUN 13 mg/dL (8-23); BUN/CREATININE RATIO 15 (12-20 (CALC)); CARBON DIOXIDE 24 mmol/l (22-30); CHLORIDE 109 mmol/l (95-108); CREATININE 0.9 mg/dL (0.5-1.0); GFR 60 ML/MIN (>=60 (CALC)); GFR FOR AFR.AMER. > 60 ML/MIN (>=60 (CALC)); HEMATOCRIT 34.1 % (37.0-47.0); HEMOGLOBIN 11.1 g/dl (12.0-16.0); IMMATURE GRANULOCYTES 1.1 % (0.0-5.0); MEAN CELL VOLUME 98.3 fL CALC (80.0-100.0); MEAN CORPUSCULAR HGB CONC 32.6 g/L CALC (32.0-36.0); NEUT# 10.58 thou/uL (2.00-7.15); POTASSIUM 4.1 mmol/l (3.5-5.1); RED BLOOD COUNT 3.47 mill/uL (4.20-5.60); RED CELL DISTRI WIDTH 12.1 % (11.5-15.5); SODIUM 136 mmol/l (137-146)
[2018-05-13 05:48] LABS: MAGNESIUM 2.8 mg/dL (1.6-2.3)
--- NOTE | 2018-05-13 07:00 | NUR ---
SHIFT CHANGE REPORT FROM MARIANA, PT SLEEPING, BREATHING EVEN AND NON-LABORED, NO SIGN DISCOMFORT, IVF INFUSING, TELE MONITOR IN PLACE, CALL MONGE IN REACH.
--- NOTE | 2018-05-13 07:30 | NUR ---
AWAKE AND ALERT AT THIS TIME SITTING UP IN RECLINER PREPARING FOR MEAL, STATED HER PAIN IS MUCH BETTER BUT MOVEMENT AGGRAVATES IT, WILL CONTINUE TO MONITOR.
[2018-05-13 08:28] VITALS: BP 104/36
--- NOTE | 2018-05-13 10:38 | NUR ---
OMI SHERIDAN) ROUNDED, DISCUSSED PLAN OF CARE AND WROTE ORDERS.
--- NOTE | 2018-05-13 11:39 | NUR ---
SITTING UP IN RECLINER, ALL NEEDS MET, MEAL SERVED.
[2018-05-13 11:56] VITALS: BP 117/43
--- NOTE | 2018-05-13 13:37 | NUR ---
PATIENT SEEN FOR GAIT TRAINING. SHE IS ALERT AND STATES HER PAIN LEVEL IS MUCH LESS THAN YESTERDAY. SHE WAS INDEP IN SIT TO AND FROM STAND WITH VERBAL INSTRUCTION FOR SAFETY DURING TRANSFERS. AMBULATION DONE WITH A ROLLIMG WALKER. GAIT IS SLOW WITH SMALL STEPS. SHE WAS ABLE TO WALK 150 FEET, REST 5 MIN FOR MILD SOB, AND WALK ANOTHER 150 FEET. SHE APPEARED TO TOLERATE TREATMENT WELL AND WAS SITTING ON THE COMMODE WITH THE CALL LIGHT NEXT TO HER. NURSING MADE AWARE. PATIENT INSTRUCTED TO CALL FOR HELP TO RETURN TO THE BED.
[2018-05-13 15:59] VITALS: BP 131/41
--- NOTE | 2018-05-13 19:23 | NUR ---
NURSE TO NURSE REPORT RECIEVED FROM ERIC LEE. PT NOTED LAYING IN A SEMI-FOWLERS POSITION IN BED WATCHING TV. PT DENIES ANY PAIN OR DISCOMFORT. ALERT AND ORIENTED X3. IV SITE CDI, IV FLUIDS INFUSING WITHOUT DIFFICULTY. RESPIRATIONS EVEN AND UNLABORED. DISCUSSED PLAN OF CARE. EDUCATION PROVIDED FOR IS AT BEDSIDE PT VERBALIZED UNDERSTANDING. CALL LIGHT WITHIN REACH.
[2018-05-13 20:00] VITALS: BP 134/68
--- NOTE | 2018-05-13 20:31 | NUR ---
ASSISTED PT WITH SHOWER. LINENS CHANGED AT THIS TIME. PT TOLERATED WELL.
--- NOTE | 2018-05-14 00:03 | NUR ---
PT RESTING IN BED WITH EYES CLOSED. EASILY AROUSED TO VERBAL STIMULI. IV ABT INFUSING AT THIS TIME WITHOUT DIFFICULTY. PT DENIES ANY PAIN OR DISCOMFORT. CALL LIGHT WITHIN REACH.
--- NOTE | 2018-05-14 04:02 | NUR ---
PT RESTING IN BED WITH EYES CLOSED. IV FLUIDS INFUSING WITHOUT DIFFICULTY. NO S/S OF PAIN OR DISCOMFORT NOTED. CALL LIGHT WITHIN REACH.
[2018-05-14 04:20] VITALS: BP 134/58
[2018-05-14 05:02] LABS: HEMATOCRIT 32.3 % (37.0-47.0); HEMOGLOBIN 10.6 g/dl (12.0-16.0); IMMATURE GRANULOCYTES 0.3 % (0.0-5.0); MEAN CELL VOLUME 98.5 fL CALC (80.0-100.0); MEAN CORPUSCULAR HGB 32.3 pG CALC (26.0-32.0); MEAN CORPUSCULAR HGB CONC 32.8 g/L CALC (32.0-36.0); NEUT# 6.6 thou/uL (2.00-7.15); RED BLOOD COUNT 3.28 mill/uL (4.20-5.60); RED CELL DISTRI WIDTH 12.2 % (11.5-15.5)
[2018-05-14 05:15] LABS: ANION GAP 7 (6-22 (CALC)); BUN 12 mg/dL (8-23); BUN/CREATININE RATIO 16 (12-20 (CALC)); CARBON DIOXIDE 23 mmol/l (22-30); CHLORIDE 115 mmol/l (95-108); CREATININE 0.8 mg/dL (0.5-1.0); GFR > 60 ML/MIN (>=60 (CALC)); GFR FOR AFR.AMER. > 60 ML/MIN (>=60 (CALC)); POTASSIUM 3.8 mmol/l (3.5-5.1); SODIUM 141 mmol/l (137-146)
[2018-05-14 05:19] LABS: INTERNATIONAL NORMALIZED RATIO 4.1 RATIO (0.7-1.3); PROTHROMBIN TIME 42.2 SECONDS (9.0-12.5)
--- NOTE | 2018-05-14 07:33 | NUR ---
SHIFT CHANGE REPORT FROM MARIANA, PT SLEEPING, BREATHING EVEN AND NON-LABORED, NO SIGN DISCOMFORT, TELE MONITOR IN PLACE, IVF INFUSING, CALL MONGE IN REACH.
[2018-05-14 08:04] VITALS: BP 152/56
[2018-05-14 11:30] VITALS: BP 147/60
--- NOTE | 2018-05-14 12:11 | NUR ---
SITTING UP IN BED HAVING MEAL, FAMILY MEMBERS VISITING, ALL NEEDS MET.
[2018-05-14] MEDS ORDERED: NAPROXEN500 MG PO (14:31)
[2018-05-14] MEDS ORDERED: DOXYCYC MONO100 M2 PO (14:31)
--- NOTE | 2018-05-14 15:52 | NUR ---
REPORT CALLED TO JAMAL @ [facility], PT PREPARING TO LEAVE AT THIS TIME.
--- NOTE | 2018-05-14 16:28 | NUR ---
Discharge instructions given. Patient verbalizes understanding of same. Discharged in good condition via Wheelchair to [facility] with *Other. All belongings sent with pt.
== END 2018-05-14 16:03 | DRG 543 ==
LOC: MS2 09:26
PROVIDERS: Internal Medicine Nephrology; Nurse Practitioner Family; ADMIT Internal Medicine; ATTEND Internal Medicine
DX: M80.08XA Age-related osteoporosis with current pathological fracture, vertebra(e), initial encounter for fracture (principal); E87.1 Hypo-osmolality and hyponatremia; J98.11 Atelectasis; D68.32 Hemorrhagic disorder due to extrinsic circulating anticoagulants; I12.9 Hypertensive chronic kidney disease with stage 1 through stage 4 chronic kidney disease, or unspecified chronic kidney disease; N18.3 Chronic kidney disease, stage 3 (moderate); J44.9 Chronic obstructive pulmonary disease, unspecified; E03.9 Hypothyroidism, unspecified; E78.5 Hyperlipidemia, unspecified; E86.0 Dehydration; N39.3 Stress incontinence (female) (male); K21.9 Gastro-esophageal reflux disease without esophagitis; E55.9 Vitamin D deficiency, unspecified; E83.42 Hypomagnesemia; E66.9 Obesity, unspecified; T45.515A Adverse effect of anticoagulants, initial encounter; K59.00 Constipation, unspecified; Z68.26 Body mass index [BMI] 26.0-26.9, adult; Z79.01 Long term (current) use of anticoagulants; Z98.890 Other specified postprocedural states; Z95.2 Presence of prosthetic heart valve; Z87.310 Personal history of (healed) osteoporosis fracture
CPT/HCPCS: J3475; Q9967

== ENCOUNTER 2019-08-10 07:05 | Inpatient (IN) | payer MEDICARE, OTHER ==
[~2019-08-10] VITALS: Ht 167.6 cm; Wt 63.1 kg
[~2019-08-10 07:05] MED LIST changes: +DOXYCYC MONO100 M2 PO; +MIRALAX3350 NF PO; +NAPROXEN500 MG PO; +WARFARIN5 MG PO
[2019-08-10 07:51] LABS: HEMATOCRIT 41.6 % (37.0-47.0); HEMOGLOBIN 13.6 g/dl (12.0-16.0); IMMATURE GRANULOCYTES 0.6 % (0.0-5.0); MEAN CELL VOLUME 96.5 fL CALC (80.0-100.0); MEAN CORPUSCULAR HGB 31.6 pG CALC (26.0-32.0); MEAN CORPUSCULAR HGB CONC 32.7 g/L CALC (32.0-36.0); NEUT# 13.57 thou/uL (2.00-7.15); RED BLOOD COUNT 4.31 mill/uL (4.20-5.60); RED CELL DISTRI WIDTH 12.8 % (11.5-15.5)
[2019-08-10 08:09] LABS: ALBUMIN 4.1 g/dL (3.2-5.0); ALKALINE PHOSPHATASE 68 u/l (38-126); ANION GAP 11 (6-22 (CALC)); BUN 18 mg/dL (8-23); BUN/CREATININE RATIO 21 (12-20 (CALC)); CARBON DIOXIDE 25 mmol/l (22-30); CHLORIDE 105 mmol/l (95-108); CREATININE 0.9 mg/dL (0.5-1.0); GFR 60 ML/MIN (>=60 (CALC)); GFR FOR AFR.AMER. > 60 ML/MIN (>=60 (CALC)); LIPASE 12 u/l (23-300); POTASSIUM 4.6 mmol/l (3.5-5.1); SGOT/AST 23 u/l (9-36); SODIUM 136 mmol/l (137-146); TOTAL PROTEIN 7.2 g/dL (6.3-8.2)
[2019-08-10 08:11] LABS: BILIRUBIN, TOTAL 1.2 mg/dL (0.0-1.4)
[2019-08-10 11:13] LABS: URINE BILIRUBIN - DIPSTICK NEGATIVE (NEGATIVE); URINE BLOOD DIPSTICK NEGATIVE (NEGATIVE); URINE COLOR YELLOW; URINE GLUCOSE - DIPSTICK NEGATIVE (NEGATIVE); URINE KETONE NEGATIVE (NEGATIVE); URINE LEUK ESTERASE TRACE (NEGATIVE); URINE NITRITE - DIPSTICK NEGATIVE (Negative); URINE PH 7.5 (4.5-8.0); URINE PROTEIN - DIPSTICK NEGATIVE (NEG-TRACE); URINE SPECIFIC GRAVITY 1.015; URINE UROBILINOGEN - DIPSTICK 0.2 E.U./dL (0.2)
[2019-08-10] MEDS ORDERED: TRELEGY ELLIPTA1 AER (11:19)
[2019-08-10 17:55] LABS: INTERNATIONAL NORMALIZED RATIO 1.6 RATIO (0.7-1.3); PROTHROMBIN TIME 16.7 SECONDS (9.0-12.5)
[2019-08-10 18:30] VITALS: BP 133/57
[2019-08-10 23:42] VITALS: BP 118/49
[2019-08-11 03:45] VITALS: BP 107/55
[2019-08-11 07:26] VITALS: BP 101/49
[2019-08-11 12:00] VITALS: BP 127/62
[2019-08-11 15:11] LABS: INTERNATIONAL NORMALIZED RATIO 1.4 RATIO (0.7-1.3); PROTHROMBIN TIME 14.9 SECONDS (9.0-12.5)
[2019-08-11 15:12] LABS: ANION GAP 12 (6-22 (CALC)); BUN 25 mg/dL (8-23); BUN/CREATININE RATIO 30 (12-20 (CALC)); CARBON DIOXIDE 24 mmol/l (22-30); CHLORIDE 102 mmol/l (95-108); CREATININE 0.8 mg/dL (0.5-1.0); GFR > 60 ML/MIN (>=60 (CALC)); GFR FOR AFR.AMER. > 60 ML/MIN (>=60 (CALC)); POTASSIUM 3.9 mmol/l (3.5-5.1); SODIUM 133 mmol/l (137-146)
[2019-08-11 15:13] LABS: MAGNESIUM 1.6 mg/dL (1.6-2.3)
[2019-08-11 18:40] VITALS: BP 102/54
[2019-08-11 23:57] VITALS: BP 121/53
[2019-08-12 03:38] VITALS: BP 106/53
[2019-08-12 05:37] LABS: IMMATURE GRANULOCYTES 0.4 % (0.0-5.0); MEAN CELL VOLUME 96.1 fL CALC (80.0-100.0); MEAN CORPUSCULAR HGB 31.8 pG CALC (26.0-32.0); MEAN CORPUSCULAR HGB CONC 33.1 g/L CALC (32.0-36.0); NEUT# 9.29 thou/uL (2.00-7.15); RED BLOOD COUNT 3.55 mill/uL (4.20-5.60); RED CELL DISTRI WIDTH 12.8 % (11.5-15.5)
[2019-08-12 05:41] LABS: ANION GAP 10 (6-22 (CALC)); BUN 25 mg/dL (8-23); BUN/CREATININE RATIO 25 (12-20 (CALC)); CARBON DIOXIDE 26 mmol/l (22-30); CHLORIDE 103 mmol/l (95-108); GFR 53 ML/MIN (>=60 (CALC)); GFR FOR AFR.AMER. > 60 ML/MIN (>=60 (CALC)); MAGNESIUM 1.7 mg/dL (1.6-2.3); POTASSIUM 3.5 mmol/l (3.5-5.1); SODIUM 135 mmol/l (137-146)
[2019-08-12 05:47] LABS: HEMATOCRIT 34.1 % (37.0-47.0); HEMOGLOBIN 11.3 g/dl (12.0-16.0)
[2019-08-12 05:53] LABS: INTERNATIONAL NORMALIZED RATIO 1.6 RATIO (0.7-1.3); PROTHROMBIN TIME 16.7 SECONDS (9.0-12.5)
[2019-08-12 08:17] VITALS: BP 113/63
[2019-08-12 12:00] VITALS: BP 116/72
[2019-08-12 15:35] VITALS: BP 151/50
[2019-08-12 19:30] VITALS: BP 128/71
[2019-08-13] VITALS (8 sets, daily range): BP systolic 113–137; BP diastolic 39–78
[2019-08-13 05:04] LABS: PROTHROMBIN TIME 21.3 SECONDS (9.0-12.5)
[2019-08-13 05:27] LABS: INTERNATIONAL NORMALIZED RATIO 2.1 RATIO (0.7-1.3)
[2019-08-13 11:37] LABS: ANION GAP 13 (6-22 (CALC)); BUN 20 mg/dL (8-23); BUN/CREATININE RATIO 20 (12-20 (CALC)); CHLORIDE 93 mmol/l (95-108); GFR 53 ML/MIN (>=60 (CALC)); GFR FOR AFR.AMER. > 60 ML/MIN (>=60 (CALC)); MAGNESIUM 1.5 mg/dL (1.6-2.3); POTASSIUM 3.3 mmol/l (3.5-5.1); SODIUM 136 mmol/l (137-146)
[2019-08-13 13:07] LABS: CARBON DIOXIDE 33 mmol/l (22-30)
[2019-08-14 04:01] VITALS: BP 138/80
[2019-08-14 05:19] LABS: MEAN CELL VOLUME 94.7 fL CALC (80.0-100.0); MEAN CORPUSCULAR HGB CONC 32.8 g/L CALC (32.0-36.0); RED BLOOD COUNT 4.51 mill/uL (4.20-5.60); RED CELL DISTRI WIDTH 12.2 % (11.5-15.5)
[2019-08-14 05:29] LABS: HEMATOCRIT 42.7 % (37.0-47.0)
[2019-08-14 05:39] LABS: INTERNATIONAL NORMALIZED RATIO 2.1 RATIO (0.7-1.3)
[2019-08-14 05:45] LABS: CREATININE 1.1 mg/dL (0.5-1.0); POTASSIUM 3.8 mmol/l (3.5-5.1)
[2019-08-14 07:59] VITALS: BP 148/76
[2019-08-14 10:38] VITALS: BP 124/60
[2019-08-14 15:40] VITALS: BP 124/68
[2019-08-14 20:36] VITALS: BP 109/61
[2019-08-15] VITALS: BP 130/69
[2019-08-15 05:40] LABS: INTERNATIONAL NORMALIZED RATIO 2.4 RATIO (0.7-1.3); PROTHROMBIN TIME 24.1 SECONDS (9.0-12.5)
[2019-08-15 05:48] VITALS: BP 132/67
[2019-08-15 05:57] LABS: ANION GAP 12 (6-22 (CALC)); BUN 20 mg/dL (8-23); BUN/CREATININE RATIO 22 (12-20 (CALC)); CARBON DIOXIDE 29 mmol/l (22-30); CHLORIDE 97 mmol/l (95-108); CREATININE 0.9 mg/dL (0.5-1.0); GFR 60 ML/MIN (>=60 (CALC)); GFR FOR AFR.AMER. > 60 ML/MIN (>=60 (CALC)); MAGNESIUM 1.8 mg/dL (1.6-2.3); POTASSIUM 3.5 mmol/l (3.5-5.1); SODIUM 134 mmol/l (137-146)
[2019-08-15 08:08] VITALS: BP 126/78
[2019-08-15] MEDS ORDERED: TRAMADOL HCL50 MG PO (09:52)
[2019-08-15] MEDS ORDERED: DOXYCYCL HYC100 MG PO (09:52)
[2019-08-15 11:21] VITALS: BP 112/66
== END 2019-08-15 16:34 | DRG 193 ==
LOC: ED 07:05 → ED-I 10:45 → ED 11:01 → ED-I 11:02 → MS2 17:16
PROVIDERS: Family Medicine; Internal Medicine; Nurse Practitioner Family; ADMIT Internal Medicine; ATTEND Internal Medicine
DX: J18.9 Pneumonia, unspecified organism (principal); J96.21 Acute and chronic respiratory failure with hypoxia; J44.1 Chronic obstructive pulmonary disease with (acute) exacerbation; E87.1 Hypo-osmolality and hyponatremia; J44.0 Chronic obstructive pulmonary disease with (acute) lower respiratory infection; I48.91 Unspecified atrial fibrillation; I11.0 Hypertensive heart disease with heart failure; I50.9 Heart failure, unspecified; E87.6 Hypokalemia; J84.89 Other specified interstitial pulmonary diseases; E03.9 Hypothyroidism, unspecified; E78.5 Hyperlipidemia, unspecified; Z79.01 Long term (current) use of anticoagulants; Z95.2 Presence of prosthetic heart valve; Z99.81 Dependence on supplemental oxygen
CPT/HCPCS: J3475; Q9967

== ENCOUNTER 2020-08-12 11:57 | Emergency (ER) | payer MEDICARE, OTHER ==
[~2020-08-12] VITALS: Ht 167.6 cm; Wt 65.0 kg
[~2020-08-12 11:57] MED LIST changes: +DOXYCYCL HYC100 MG PO; +TRELEGY ELLIPTA1 AER
[2020-08-12 13:11] VITALS: BP 128/56
[2020-08-12 13:50] LABS: HEMATOCRIT 39.6 % (37.0-47.0); HEMOGLOBIN 12.5 g/dl (12.0-16.0); IMMATURE GRANULOCYTES 0.2 % (0.0-5.0); MEAN CELL VOLUME 96.4 fL CALC (80.0-100.0); MEAN CORPUSCULAR HGB 30.4 pG CALC (26.0-32.0); MEAN CORPUSCULAR HGB CONC 31.6 g/dL CAL (32.0-36.0); NEUT# 6.27 thou/uL (2.00-7.15); RED BLOOD COUNT 4.11 mill/uL (4.20-5.60); RED CELL DISTRI WIDTH 12.4 % (11.5-15.5)
[2020-08-12 14:02] LABS: ALBUMIN 3.7 g/dL (3.2-5.0); ALKALINE PHOSPHATASE 61 u/l (38-126); BUN 18 mg/dL (8-23); BUN/CREATININE RATIO 24 (12-20 (CALC)); CARBON DIOXIDE 25 mmol/l (22-30); CHLORIDE 95 mmol/l (95-108); CREATININE 0.8 mg/dL (0.5-1.0); GFR > 60 ML/MIN (>=60 (CALC)); GFR FOR AFR.AMER. > 60 ML/MIN (>=60 (CALC)); SGOT/AST 25 u/l (9-36); SODIUM 132 mmol/l (137-146); TOTAL PROTEIN 7.3 g/dL (6.3-8.2)
[2020-08-12 14:06] LABS: ANION GAP 17 (6-22 (CALC)); POTASSIUM 4.7 mmol/l (3.5-5.1)
[2020-08-12 14:14] LABS: MYOGLOBIN 44 ng/mL (0 - 62)
[2020-08-12 15:46] LABS: URINE BILIRUBIN - DIPSTICK NEGATIVE (NEGATIVE); URINE BLOOD DIPSTICK NEGATIVE (NEGATIVE); URINE COLOR YELLOW; URINE GLUCOSE - DIPSTICK NEGATIVE (NEGATIVE); URINE KETONE TRACE mg/dL (NEGATIVE); URINE LEUK ESTERASE NEGATIVE (NEGATIVE); URINE NITRITE - DIPSTICK NEGATIVE (Negative); URINE PH 5.5 (4.5-8.0); URINE PROTEIN - DIPSTICK NEGATIVE (NEG-TRACE); URINE UROBILINOGEN - DIPSTICK 0.2 E.U./dL (0.2)
== END 2020-08-12 16:20 ==
LOC: ED 11:57
PROVIDERS: Family Medicine
DX: R53.1 Weakness (principal); I48.91 Unspecified atrial fibrillation; L89.152 Pressure ulcer of sacral region, stage 2; I10 Essential (primary) hypertension; Z95.2 Presence of prosthetic heart valve; Z87.440 Personal history of urinary (tract) infections

== ENCOUNTER 2020-09-28 12:34 | Observation (INO) | payer MEDICARE, OTHER ==
[~2020-09-28] VITALS: Ht 167.6 cm; Wt 49.0 kg
[2020-09-28 13:10] LABS: HEMATOCRIT 40.5 % (37.0-47.0); IMMATURE GRANULOCYTES 0.3 % (0.0-5.0); MEAN CELL VOLUME 95.1 fL CALC (80.0-100.0); MEAN CORPUSCULAR HGB 30.5 pG CALC (26.0-32.0); MEAN CORPUSCULAR HGB CONC 32.1 g/dL CAL (32.0-36.0); NEUT# 7.28 thou/uL (2.00-7.15); RED BLOOD COUNT 4.26 mill/uL (4.20-5.60); RED CELL DISTRI WIDTH 12.9 % (11.5-15.5)
[2020-09-28 13:33] LABS: ALBUMIN 3.3 g/dL (3.2-5.0); ALKALINE PHOSPHATASE 75 u/l (38-126); ANION GAP 9 (6-22 (CALC)); BILIRUBIN, TOTAL 0.8 mg/dL (0.0-1.4); BUN 23 mg/dL (8-23); BUN/CREATININE RATIO 21 (12-20 (CALC)); CHLORIDE 93 mmol/l (95-108); CREATININE 1.1 mg/dL (0.5-1.0); GFR 47 ML/MIN (>=60 (CALC)); GFR FOR AFR.AMER. 57 ML/MIN (>=60 (CALC)); LIPASE 17 u/l (23-300); POTASSIUM 4.9 mmol/l (3.5-5.1); SGOT/AST 26 u/l (9-36); SODIUM 129 mmol/l (137-146); TOTAL PROTEIN 7.1 g/dL (6.3-8.2)
[2020-09-28 13:34] LABS: ACT PARTIAL THROMBO TIME 44.6 SECONDS (20.0-32.5)
[2020-09-28 13:36] LABS: CARBON DIOXIDE 32 mmol/l (22-30)
[2020-09-28 13:38] LABS: INTERNATIONAL NORMALIZED RATIO 6.3 RATIO (0.7-1.3)
[2020-09-28 13:48] LABS: URINE BILIRUBIN - DIPSTICK NEGATIVE (NEGATIVE); URINE BLOOD DIPSTICK SMALL (NEGATIVE); URINE CLARITY CLOUDY; URINE GLUCOSE - DIPSTICK NEGATIVE (NEGATIVE); URINE KETONE NEGATIVE (NEGATIVE); URINE NITRITE - DIPSTICK NEGATIVE (Negative); URINE PH 6.5 (4.5-8.0); URINE PROTEIN - DIPSTICK 30 mg/dL (NEG-TRACE); URINE UROBILINOGEN - DIPSTICK 0.2 E.U./dL (0.2)
[2020-09-28 13:50] LABS: URINE COLOR DK. YELLOW
[2020-09-28 13:58] LABS: URINE BACTERIA MODERATE hpf; URINE SQUAMOUS EPITHELIAL CELL FEW EPI/hpf (0-FEW); URINE WBC 50-100 WBC/hpf (0-5)
[2020-09-28 17:53] VITALS: BP 111/63
[2020-09-28] MEDS ORDERED: OYSTER SHELL C500 M6 PO (18:03)
[2020-09-28] MEDS ORDERED: TRELEGY ELLIPTA1 AER IN (18:05)
[2020-09-28] MEDS ORDERED: ONDANSETRON4 MG PO (18:09)
[2020-09-28] MEDS ORDERED: IPRATROPIU0.5 MG/3 M IN (18:12)
[2020-09-28] MEDS ORDERED: MIRTAZAPINE15 MG PO (18:13)
[2020-09-28 19:50] VITALS: BP 94/60
[2020-09-29] VITALS: BP 100/61
[2020-09-29 04:00] VITALS: BP 94/52
[2020-09-29 05:03] LABS: HEMATOCRIT 38.4 % (37.0-47.0); HEMOGLOBIN 11.7 g/dl (12.0-16.0); MEAN CELL VOLUME 98.7 fL CALC (80.0-100.0); MEAN CORPUSCULAR HGB 30.1 pG CALC (26.0-32.0); MEAN CORPUSCULAR HGB CONC 30.5 g/dL CAL (32.0-36.0); RED BLOOD COUNT 3.89 mill/uL (4.20-5.60); RED CELL DISTRI WIDTH 12.9 % (11.5-15.5)
[2020-09-29 05:15] LABS: ANION GAP 9 (6-22 (CALC)); BUN 20 mg/dL (8-23); BUN/CREATININE RATIO 23 (12-20 (CALC)); CARBON DIOXIDE 28 mmol/l (22-30); CHLORIDE 100 mmol/l (95-108); CREATININE 0.9 mg/dL (0.5-1.0); GFR 60 ML/MIN (>=60 (CALC)); GFR FOR AFR.AMER. > 60 ML/MIN (>=60 (CALC)); MAGNESIUM 1.9 mg/dL (1.6-2.3); POTASSIUM 4.6 mmol/l (3.5-5.1); SODIUM 133 mmol/l (137-146)
[2020-09-29 05:32] LABS: PROTHROMBIN TIME 50.3 SECONDS (9.0-12.5)
[2020-09-29 08:18] LABS: URINE LEUK ESTERASE MODERATE (Negative)
[2020-09-29] MEDS ORDERED: PROLIA60 MG/ML SC (08:33)
[2020-09-29] MEDS ORDERED: VITAMIN D31000 UNI1 PO (08:34)
[2020-09-29] MEDS ORDERED: TRAMADOL HYDROC50 M1 PO (08:35)
[2020-09-29] MEDS ORDERED: VOLTAREN1%GEL TOP (08:36)
[2020-09-29] MEDS ORDERED: RESTORIL15 M1 PO (08:37)
[2020-09-29] MEDS ORDERED: ACETAMINOPHEN500 M1 PO (08:39)
[2020-09-29 09:00] VITALS: BP 103/62
[2020-09-29 10:35] VITALS: BP 92/46
[2020-09-29] MEDS ORDERED: ENSURE COMPLETE NUTR PO ×2 (11:43→11:55)
[2020-09-29] MEDS ORDERED: ACID CONTROL MA20 MG PO (11:49)
[2020-09-29] MEDS ORDERED: IPRATROPIU0.5 MG/3 M IN (11:50)
[2020-09-29] MEDS ORDERED: REMERON7.5 MG PO (11:51)
[2020-09-29 15:40] VITALS: BP 96/58
[2020-09-29 18:51] VITALS: BP 93/50
[2020-09-30] VITALS: BP 99/55
[2020-09-30 04:33] VITALS: BP 104/60
[2020-09-30 05:29] LABS: HEMATOCRIT 41.5 % (37.0-47.0); HEMOGLOBIN 12.6 g/dl (12.0-16.0); MEAN CELL VOLUME 98.6 fL CALC (80.0-100.0); MEAN CORPUSCULAR HGB 29.9 pG CALC (26.0-32.0); MEAN CORPUSCULAR HGB CONC 30.4 g/dL CAL (32.0-36.0); RED BLOOD COUNT 4.21 mill/uL (4.20-5.60); RED CELL DISTRI WIDTH 12.8 % (11.5-15.5)
[2020-09-30 05:54] LABS: ANION GAP 9 (6-22 (CALC)); BUN 15 mg/dL (8-23); BUN/CREATININE RATIO 23 (12-20 (CALC)); CARBON DIOXIDE 26 mmol/l (22-30); CHLORIDE 103 mmol/l (95-108); CREATININE 0.7 mg/dL (0.5-1.0); GFR > 60 ML/MIN (>=60 (CALC)); GFR FOR AFR.AMER. > 60 ML/MIN (>=60 (CALC)); MAGNESIUM 1.7 mg/dL (1.6-2.3); POTASSIUM 4.4 mmol/l (3.5-5.1); SODIUM 134 mmol/l (137-146)
[2020-09-30 06:09] LABS: INTERNATIONAL NORMALIZED RATIO 3.2 RATIO (0.7-1.3); PROTHROMBIN TIME 32.3 SECONDS (9.0-12.5)
[2020-09-30 08:00] VITALS: BP 101/58
[2020-09-30 11:05] VITALS: BP 93/54
[2020-09-30] MEDS ORDERED: WARFARIN2 MG PO (11:48)
[2020-09-30] MEDS ORDERED: KEFLEX500 MG PO (11:48)
[2020-09-30] MEDS ORDERED: LEVOTHYROXIN75 MCG PO (11:50)
== END 2020-09-30 14:20 ==
LOC: ED 12:34 → ED-I 16:03 → ED 16:17 → MS2 16:18
PROVIDERS: Nurse Practitioner; ADMIT Internal Medicine; ATTEND Internal Medicine
DX: N39.0 Urinary tract infection, site not specified (principal); E87.1 Hypo-osmolality and hyponatremia; R79.1 Abnormal coagulation profile; T45.515A Adverse effect of anticoagulants, initial encounter; I10 Essential (primary) hypertension; R62.7 Adult failure to thrive; J44.9 Chronic obstructive pulmonary disease, unspecified; L98.8 Other specified disorders of the skin and subcutaneous tissue; Z68.1 Body mass index [BMI] 19.9 or less, adult; E03.9 Hypothyroidism, unspecified; E78.5 Hyperlipidemia, unspecified; I48.20 Chronic atrial fibrillation, unspecified; K21.9 Gastro-esophageal reflux disease without esophagitis; J96.10 Chronic respiratory failure, unspecified whether with hypoxia or hypercapnia; B96.20 Unspecified Escherichia coli [E. coli] as the cause of diseases classified elsewhere; Z79.01 Long term (current) use of anticoagulants; Z95.2 Presence of prosthetic heart valve; Z20.822 Contact with and (suspected) exposure to COVID-19
CPT/HCPCS: G0378

== ENCOUNTER 2021-03-12 15:45 | Observation (INO) | payer MEDICARE, OTHER ==
[~2021-03-12] VITALS: Ht 167.6 cm; Wt 44.5 kg
[~2021-03-12 15:45] MED LIST changes: +ACETAMINOPHEN500 M1 PO; +ACID CONTROL MA20 MG PO; +ENSURE COMPLETE NUTR PO; +IPRATROPIU0.5 MG/3 M IN; +KEFLEX500 MG PO; +LEVOTHYROXIN75 MCG PO; +MIRTAZAPINE15 MG PO; +ONDANSETRON4 MG PO; +OYSTER SHELL C500 M6 PO; +PROLIA60 MG/ML SC; +REMERON7.5 MG PO; +RESTORIL15 M1 PO; +TRAMADOL HYDROC50 M1 PO; +TRELEGY ELLIPTA1 AER IN; +VITAMIN D31000 UNI1 PO; +WARFARIN2 MG PO
--- NOTE | 2021-03-12 15:45 | NUR ---
PT TO ROOM FOR TRIAGE VIA EMS STRETCHER.
[2021-03-12 16:08] LABS: IMMATURE GRANULOCYTES 0.1 % (0.0-5.0); MEAN CELL VOLUME 97.2 fL CALC (80.0-100.0); MEAN CORPUSCULAR HGB 30.8 pG CALC (26.0-32.0); MEAN CORPUSCULAR HGB CONC 31.7 g/dL CAL (32.0-36.0); NEUT# 8.83 thou/uL (2.00-7.15); RED BLOOD COUNT 3.57 mill/uL (4.20-5.60); RED CELL DISTRI WIDTH 12.1 % (11.5-15.5)
[2021-03-12 16:09] LABS: HEMATOCRIT 34.7 % (37.0-47.0)
[2021-03-12 16:34] LABS: ALBUMIN 3.3 g/dL (3.2-5.0); ALKALINE PHOSPHATASE 96 u/l (38-126); BILIRUBIN, TOTAL 0.8 mg/dL (0.0-1.4); BUN 31 mg/dL (8-23); BUN/CREATININE RATIO 43 (12-20 (CALC)); CREATININE 0.7 mg/dL (0.5-1.0); GFR > 60 ML/MIN (>=60 (CALC)); GFR FOR AFR.AMER. > 60 ML/MIN (>=60 (CALC)); POTASSIUM 4.1 mmol/l (3.5-5.1); SGOT/AST 30 u/l (9-36); SODIUM 129 mmol/l (137-146); TOTAL PROTEIN 7.4 g/dL (6.3-8.2)
[2021-03-12 16:37] LABS: ANION GAP 8 (6-22 (CALC)); CARBON DIOXIDE 35 mmol/l (22-30); CHLORIDE 90 mmol/l (95-108)
--- NOTE | 2021-03-12 16:49 | NUR ---
PT RESTING, NO DISTRESS. STABLE ON MONITOR. BED IN LOW POSITION. PT IS A&OX3. OXYGEN IN PLACE, TOLERATING WELL.
--- NOTE | 2021-03-12 17:21 | NUR ---
PT RETURNED FROM RADIOLOGY, REATTACHED TO MONITOR. NO COMPLAINTS VOICED.
[2021-03-12] MEDS ORDERED: LEVOTHYROXIN75 MCG PO (18:01)
[2021-03-12] MEDS ORDERED: WARFARIN SODIU2.5 MG PO (18:06)
[2021-03-12 18:17] LABS: INTERNATIONAL NORMALIZED RATIO 2.2 RATIO (0.7-1.3); PROTHROMBIN TIME 22.3 SECONDS (9.0-12.5)
--- NOTE | 2021-03-12 18:35 | NUR ---
PT STABLE ON MONITOR. NO DISTRESS. VITALS UNCHANGED.
--- NOTE | 2021-03-12 18:58 | NUR ---
REPORT GIVEN TO JESUS ESPINOZA
--- NOTE | 2021-03-12 19:00 | NUR ---
REPORT RECEIVED FROM JEAN MARIE RN
--- NOTE | 2021-03-12 19:30 | NUR ---
PT RESTING ON STRETCHER AT THIS TIME IN NAD. RESP EVEN AND UNLAB. SKIN WARM AND DRY. CORRECTIONAL CASE RECORDS SUPERVISOR IN PLACE. CALL LIGHT WITHIN REACH.
--- NOTE | 2021-03-12 20:30 | NUR ---
PT RESTING ON STRETCHER WITH EYES CLOSED. RESP EVEN AND UNLAB. SKIN WARM AND DRY. EDITOR GREETING CARD IN PLACE. PT VOICES NO CMPLAINTS AT THIS TIME. ADVISED OF CONT WAIT TIME.
--- NOTE | 2021-03-12 21:30 | NUR ---
PT RESTING ON STRETCHER WITH EYES CLOSED. RESP EVEN AND UNLAB. SKIN WARM AND DRY. MONITOR IN PLACE. CALL LIGHT WITHIN REACH.
--- NOTE | 2021-03-12 22:03 | NUR ---
REPORT PROVIDED TO MANNIE LEE ON [facility]
--- NOTE | 2021-03-12 22:40 | NUR ---
Admission Note Report Given to: MANNIE RN Transported by: Wheelchair X Stretcher Transported with: X Nurse Transporter X Patent IV O2 X Radio Control Crane Operator Location: ICU X [facility] PT TRANSPORTED TO FLOOR IN STABLE CONDITION.
[2021-03-12 23:00] VITALS: BP 128/61
--- NOTE | 2021-03-12 23:30 | NUR ---
PHYSICAL ASSESMENT COMPLETE. PT CURRENTLY DENIES PAIN OR DISCOMFORT. SCHEDULED MEDICATIONS AND PRN MEDICATION ADMINISTERED, SEE E-MAR. PT DENIES ANY NEEDS AT THIS TIME. PLAN OF CARE REVIEWED, PT DENIES QUESTIONS, VERBALIZES UNDERSTANDING. ITEMS WITHIN REACH, BED LOCKED IN LOW POSITION W/ BEDRAILS UP X2. CALL MONGE WITHIN REACH, AGREES TO CALL PRN.
--- NOTE | 2021-03-12 23:53 | NUR ---
PT RECEIVED FROM ED TO ROOM 269. ARRIVES VIA STRETCHER ACCOMPANIED BY [facility]. PT AMBULATORY TO BED. GAIT UNSTEADY. PT DENIES PAIN AT THIS TIME. ORIENTED TO UNIT, ROOM, CALL MONGE, LIGHTS, TV. ICE WATER PROVIDED. CALL MONGE WITHIN REACH. AGREES TO CALL PRN.
[2021-03-13] VITALS: BP 114/71
--- NOTE | 2021-03-13 | NUR ---
PT LAYING IN BED WITH EYES CLOSED, APPEARS TO BE SLEEPING, APPEARS COMFORTABLE AND IN NO DISTRESS. RESPIRATIONS REGULAR AND UNLABORED. ITEMS REMAIN WITHIN REACH, CALL MONGE REMAINS WITHIN REACH. BED REMAINS LOCKED AND IN LOW POSITION WITH BEDRAILS UP X2. WILL CONTINUE TO MONITOR.
[2021-03-13 04:00] VITALS: BP 125/68
[2021-03-13 06:13] LABS: HEMATOCRIT 33.4 % (37.0-47.0); HEMOGLOBIN 10.7 g/dl (12.0-16.0); MEAN CELL VOLUME 95.7 fL CALC (80.0-100.0); MEAN CORPUSCULAR HGB 30.7 pG CALC (26.0-32.0); RED BLOOD COUNT 3.49 mill/uL (4.20-5.60); RED CELL DISTRI WIDTH 11.9 % (11.5-15.5)
[2021-03-13 06:32] LABS: ANION GAP 6 (6-22 (CALC)); BUN 27 mg/dL (8-23); BUN/CREATININE RATIO 45 (12-20 (CALC)); CALCULATED LDLCHOLESTEROL 92 mg/dL (62-129 (CALC)); CARBON DIOXIDE 34 mmol/l (22-30); CHLORIDE 92 mmol/l (95-108); CHOLESTEROL HDL RATIO 3.9 (<4.4 (CALC)); CREATININE 0.6 mg/dL (0.5-1.0); GFR > 60 ML/MIN (>=60 (CALC)); GFR FOR AFR.AMER. > 60 ML/MIN (>=60 (CALC)); HDL CHOLESTEROL 35 mg/dL (>=40); MAGNESIUM 1.6 mg/dL (1.6-2.3); SODIUM 128 mmol/l (137-146); TOTAL CHOLESTEROL 138 mg/dl (0-199); TOTAL TRIGLYCERIDES 52 mg/dl (30-149); VLDL CHOLESTROL 10 mg/dl (0-48 (CALC))
[2021-03-13 07:40] VITALS: BP 102/60
--- NOTE | 2021-03-13 08:46 | NUR ---
ASSESSMENT DONE. PATIENT IS ALERT AND ORIENT X2. TELE IN PLACE. PATIENT DENIES PAIN AT THIS TIME. SETUP PATIENT FOR BREAKFAST. PATIENT DENIES ANY OTHER NEEDS AT THIS TIME. SAFETY PRECAUTION REINFORCED AND CALL LIGHT IN REACH. BED ALARM IN PLACE.
[2021-03-13] MEDS ORDERED: TIZANIDINE HYDRO2 M1 PO (09:53)
[2021-03-13 10:30] VITALS: BP 102/51
--- NOTE | 2021-03-13 12:30 | NUR ---
PATIENT IS RESTING IN BED WITH NO DISTRESS NOTED. PATIENT DENIES NEEDS. CALL LIGHT IN REACH.
--- NOTE | 2021-03-13 14:43 | NUR ---
REPORT GIVEN TO KYRA AVILA FROM REHAB.
--- NOTE | 2021-03-13 14:53 | NUR ---
Discharge instructions given. Patient verbalizes understanding of same. Discharged in stable condition via Wheelchair to [facility] with staff. All belongings sent with pt.
--- NOTE | 2021-03-15 11:28 | NUR ---
PRELIM BLOOD CX SHOWS GRAM POSITIVE COCCI IN 1/4, LIKELY A CONTAMINANT. REPORTED TO DR WESTFALL. WILL F/U WITH FINAL
--- NOTE | 2021-03-17 11:40 | NUR ---
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 NO NEW ORDERS
== END 2021-03-13 14:53 ==
LOC: ED 15:45 → MS2 19:34
PROVIDERS: Nurse Practitioner; ADMIT Internal Medicine; ATTEND Internal Medicine
DX: R07.9 Chest pain, unspecified (principal); E87.1 Hypo-osmolality and hyponatremia; I10 Essential (primary) hypertension; I48.20 Chronic atrial fibrillation, unspecified; I25.10 Atherosclerotic heart disease of native coronary artery without angina pectoris; J43.9 Emphysema, unspecified; J96.10 Chronic respiratory failure, unspecified whether with hypoxia or hypercapnia; E78.5 Hyperlipidemia, unspecified; K21.9 Gastro-esophageal reflux disease without esophagitis; M19.90 Unspecified osteoarthritis, unspecified site; Z95.2 Presence of prosthetic heart valve; Z87.440 Personal history of urinary (tract) infections; Z20.822 Contact with and (suspected) exposure to COVID-19